=== PATIENT | male | born 2000 | race African-American/Black ===

== ENCOUNTER 2023-02-16 09:01 | Emergency (ER) | payer OTHER ==
[~2023-02-16] VITALS: Ht 193 cm; Wt 104.5 kg
[2023-02-16] MEDS ORDERED: HYDROCODONE/ACETAMINOPHEN 5-325 MG TABLET PO ONE (09:15)
[2023-02-16] MEDS ORDERED: PERTUSS(ACELL),DIPH,TET VAC/PF 0.5 ML SYRINGE IM. ONE (09:15)
[2023-02-16] MEDS ORDERED: SODIUM CHLORIDE 0.9% 250 ML IRRIG SOLUTION BOTTLE IRRIG ONE (09:15)
[2023-02-16] MEDS ORDERED: LIDOCAINE 1% 10 ML VIAL ID ONE (09:45)
[2023-02-16 10:29] VITALS: BP 145/75; PULSE 88; RESP 18; TEMP 98.6
[2023-02-16] MEDS ORDERED: IBUP-1492 PO (10:30)
[2023-02-16] MEDS ORDERED: CEPH-558 PO (10:30)
== END 2023-02-16 10:42 | disposition home or self-care (01) ==
LOC: EMS 09:05
DX: S61.220A Laceration with foreign body of right index finger without damage to nail, initial encounter (principal); F12.90 Cannabis use, unspecified, uncomplicated; W25.XXXA Contact with sharp glass, initial encounter; W45.8XXA Other foreign body or object entering through skin, initial encounter; Y93.89 Activity, other specified; Y92.89 Other specified places as the place of occurrence of the external cause; Y99.8 Other external cause status
CPT/HCPCS: 99284; 12042; 73130; 90715; 90471; J3490; 12002; 99283